=== PATIENT | female | born 1990 | race Caucasian/White ===

== ENCOUNTER → 2020-07-09 08:56 | Outpatient (BNVA) | payer SELFPAY | PROVIDERS: Family Provider Family Medicine; PCP Family Medicine; Visit Provider Obstetrics & Gynecology | DX: N93.9 Abnormal uterine and vaginal bleeding, unspecified (principal); N92.1 Excessive and frequent menstruation with irregular cycle; Z97.5 Presence of (intrauterine) contraceptive device | CPT/HCPCS: 83001; 84443; 84702; 85025 ==

== ENCOUNTER → 2020-07-11 14:37 | Outpatient (BNVA) | payer SELFPAY | PROVIDERS: Family Provider Family Medicine; PCP Family Medicine; Visit Provider Obstetrics & Gynecology | DX: Z30.9 Encounter for contraceptive management, unspecified (principal); Z30.46 Encounter for surveillance of implantable subdermal contraceptive | CPT/HCPCS: 81025 ==

== ENCOUNTER → 2020-10-30 15:18 | Outpatient (BNVA) | payer OTHER, SELFPAY | PROVIDERS: Family Provider Family Medicine; PCP Family Medicine; Visit Provider Nurse Practitioner Family | DX: Z20.822 Contact with and (suspected) exposure to COVID-19 (principal) | CPT/HCPCS: 87635 ==

== ENCOUNTER 2021-08-28 21:56 | Emergency (ER) | payer MEDICAID, SELFPAY ==
[2021-08-28 22:03] VITALS: BP 158/91; PULSE 113; RESP 16; TEMP 36.4; O2SAT 98; BMI 25.1
--- NOTE | 2021-08-28 23:08 | W.ED.GENADLT ---
Documented by User: [email or web address] Trinidad 08/28/21 23:09 HPI - General Adult General: Chief complaint: General Medical Stated complaint: HIGH BP Time Seen by Provider: 08/29/21 00:00 History of Present Illness: HPI narrative: Patient arrives via ambulance with a complaint of hypertension. Patient says blood pressures been high for the last 30 days. She has no prior history of this. 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 Patient is also an treatment for marijuana abuse and this started 30 days ago that she has been off marijuana also. Denies any chest pain shortness of breath or any recent illness. Dates she called ambulance tonight because people at work made her because she was feeling some tingling in her arms and chest. Onset (ago): day(s) Associated symptoms: Reports no associated symptoms; Deny chest pain, dyspnea, headache(s), nausea, rash or vomiting Review of Systems Narrative: Recent 30-day history of hypertension daily. Also coming off marijuana abuse and is in a treatment facility for that over the last 30 days. Does have some anxiety. Const: Denies: fever(s), chills or body aches Eyes: Denies: change in vision or blurry vision ENMT: Denies: throat pain or nasal congestion Card: Denies: chest pain or dyspnea on exertion Resp: Denies: dyspnea, productive cough or non-productive cough GI: Denies: abdominal pain, nausea or vomiting Musc: Denies: extremity pain Skin/Breast: Denies: rash Neuro: Denies: headache(s) Psych: Reports: anxiety; Denies: depression Zhen/Lymph: Denies: easy bruising PFSH ED PFSH: Medical History Abnormal uterine bleeding (AUB) Family History Mother Hypertension Father Hypertension Grandmother Diabetes maternal Hyperlipidemia maternal Stroke maternal Family/Other Diabetes maternal aunt Thyroid condition maternal aunt Breast cancer maternal aunt Grandfather Heart disease maternal Sister Stroke Thyroid condition Denies family history of Colon cancer Ovarian cancer Clotting disorder Anesthesia complication Bleeding disorder Uterine cancer Social History Smoking and tobacco status: current every day smoker cigarettes Alcohol intake: current Alcohol intake frequency: holidays/special occasions only Alcohol type: wine Female Reproductive History: Date of last menstrual period: 08/07/21 Course Vital Signs: Vital signs: Vital Signs Temperature 97.6 F 08/28/21 22:03 Pulse Rate 113 H 08/28/21 22:03 Respiratory Rate 16 08/28/21 22:03 Blood Pressure 158/91 08/28/21 22:03 Pulse Oximetry 98 08/28/21 22:03 Discharge Plan Discharge Patient Disposition: Home Clinical Impression: Hypertension Qualifiers: Hypertension type: unspecified Qualified Code(s): I10 - Essential (primary) hypertension Condition: Stable Prescriptions: New amlodipine 5 mg tablet 5 mg PO DAILY Qty: 30 RF: 0 No Action tranexamic acid [Lysteda] 650 mg tablet 1,300 mg PO TID 5 Days Qty: 30 RF: 0 ibuprofen 800 mg tablet 800 mg PO Q8H PRN (Reason: Breakthrough bleeding) Qty: 90 RF: 0 Nexplanon 68 mg implant 1 implant subdermal ONCE PRN (Reason: Contraception) Qty: 1 RF: 0 Discharge Orders: Discharge ED (Routine); Ordered 08/29/21 Ordered By: Julián Smith Referrals: Edgar Dominguez MD [Primary Care Provider] - 1-3 days Discharge Diet: Advance as tolerated Discharge Activity: Resume usual activity Patient Instructions: Hypertension (ED) Coding Level of Care Code ED Client Services Assistant for Chg Fwd Documented by User: Julián Smith MD 08/29/21 00:18 HPI - General Adult General: Chief complaint: General Medical Stated complaint: HIGH BP Time Seen by Provider: 08/29/21 00:00 PFSH ED PFSH: Medical History Abnormal uterine bleeding (AUB) Family History Mother Hypertension Father Hypertension Grandmother Diabetes maternal Hyperlipidemia maternal Stroke maternal Family/Other Diabetes maternal aunt Thyroid condition maternal aunt Breast cancer maternal aunt Grandfather Heart disease maternal Sister Stroke Thyroid condition Denies family history of Colon cancer Ovarian cancer Clotting disorder Anesthesia complication Bleeding disorder Uterine cancer Social History Smoking and tobacco status: current every day smoker cigarettes Alcohol intake: current Alcohol intake frequency: holidays/special occasions only Alcohol type: wine Physical Exam Const: COMMON NORMALS: no acute distress, patient oriented x3 and healthy appearing HENMT: COMMON NORMALS: normocephalic and atraumatic HEAD & SCALP: normocephalic and atraumatic Eye: COMMON NORMALS: Equal, round and reactive pupils present and EOMs intact bilaterally PUPIL: Yes Equal, round and reactive pupils present Neck/C-Spine: COMMON NORMALS: full ROM and supple Chest: COMMONS NORMALS: normal inspection of the chest and normal palpation of entire chest wall Resp: COMMON NORMALS: normal respiratory effort, No retractions, No use of accessory muscles and clear to auscultation bilaterally AUSCULTATION: clear to auscultation bilaterally Cardio: COMMON NORMALS: regular rate, regular rhythm and No murmurs present (Cardio) RATE: regular rate RHYTHM: regular rhythm GI: COMMON NORMALS: Normal to inspection, nondistended, normoactive bowel sounds present, Soft to palpation, non-tender and no masses PALPATION: Yes Soft to palpation Extremity: COMMON NORMALS: normal to inspection and full ROM Neuro: COMMON NORMALS: patient oriented x3, moves all extremities and no focal motor deficits Psych: COMMON NORMALS: mental status grossly normal, Normal thought process present and cooperative THOUGHT PROCESS: Normal thought process present Skin: COMMON NORMALS: no rashes or lesions noted and no wounds GENERAL SKIN EXAM: no rashes or lesions noted Course Vital Signs: Vital signs: Vital Signs Temperature 97.6 F 08/28/21 22:03 Pulse Rate 113 H 08/28/21 22:03 Respiratory Rate 16 08/28/21 22:03 Blood Pressure 158/91 08/28/21 22:03 Pulse Oximetry 98 08/28/21 22:03 MDM - General Adult MDM Narrative: Medical decision making narrative: Patient presents with hypertension over the last month she has no complaints at this time she is well-appearing here no chest pain will start her on amlodipine give her first dose here she is to monitor her blood pressure follow-up with PCP 3 to 5 days return if worsening she understands agrees to plan. Discharge Plan Discharge Patient Disposition: Home Clinical Impression: Hypertension Qualifiers: Hypertension type: unspecified Qualified Code(s): I10 - Essential (primary) hypertension Condition: Stable Prescriptions: New amlodipine 5 mg tablet 5 mg PO DAILY Qty: 30 RF: 0 No Action tranexamic acid [Lysteda] 650 mg tablet 1,300 mg PO TID 5 Days Qty: 30 RF: 0 ibuprofen 800 mg tablet 800 mg PO Q8H PRN (Reason: Breakthrough bleeding) Qty: 90 RF: 0 Nexplanon 68 mg implant 1 implant subdermal ONCE PRN (Reason: Contraception) Qty: 1 RF: 0 Discharge Orders: Discharge ED (Routine); Ordered 08/29/21 Ordered By: Julián Smith Referrals: Edgar Dominguez MD [Primary Care Provider] - 1-3 days Discharge Diet: Advance as tolerated Discharge Activity: Resume usual activity Patient Instructions: Hypertension (ED) Coding Level of Care Code ED Client Services Assistant for Carolyneg Vivek
[2021-08-29 00:33] VITALS: BP 143/94; PULSE 98; O2SAT 98
== END 2021-08-29 00:35 | disposition home or self-care (01) ==
PROVIDERS: Emergency Provider Emergency Medicine; PCP Family Medicine
DX: I10 Essential (primary) hypertension (principal); F17.210 Nicotine dependence, cigarettes, uncomplicated
CPT/HCPCS: 99282

== ENCOUNTER → 2021-09-22 19:11 | Outpatient (BNVA) | payer OTHER, SELFPAY | PROVIDERS: PCP Family Medicine; Visit Provider Registered Nurse Neonatal Intensive Care | DX: Z20.822 Contact with and (suspected) exposure to COVID-19 (principal) | CPT/HCPCS: 87635 ==

== ENCOUNTER → 2023-07-16 16:00 | Outpatient (BNVA) | payer MEDICAID, SELFPAY | PROVIDERS: PCP Family Medicine; Visit Provider Obstetrics & Gynecology | DX: Z30.431 Encounter for routine checking of intrauterine contraceptive device (principal); Z30.8 Encounter for other contraceptive management; Z12.4 Encounter for screening for malignant neoplasm of cervix | CPT/HCPCS: 81025; 87624 ==

== ENCOUNTER → 2023-12-24 08:10 | Outpatient (BNVA) | payer MEDICAID, SELFPAY | PROVIDERS: PCP Family Medicine; Visit Provider Obstetrics & Gynecology | DX: R87.619 Unspecified abnormal cytological findings in specimens from cervix uteri (principal) | CPT/HCPCS: 81025; 88305 ==